=== PATIENT | female | born 1945 | race Caucasian/White ===

== ENCOUNTER 2018-01-17 08:00 | Emergency (ER) | payer MEDICARE ==
[2018-01-17 08:13] VITALS: BP 146/57
--- NOTE | 2018-01-17 09:15 | UC ---
FLU HPI - HPI Summary HPI Summary: ONSET YESTERDAY OF COUGH, CONGESTION, SUBJECTIVE FEVER, CHILLS, BODY ACHES, FATIGUE, ST AND POST-TUSSIVE EMESIS. GREAT GRANDDAUGHTER HAD THE FLU 2 WEEKS AGO. NO FLU SHOT THIS SEASON. - History of Current Complaint Chief Complaint: UCRespiratory Stated Complaint: COUGH,SORE THROAT Time Seen by Provider: 01/17/18 08:37 Hx Obtained From: Patient Hx Last Menstrual Period: tubal ligation Onset/Duration: Gradual Onset, Lasting Hours, Still Present Severity Currently: Moderate Severity Initially: Moderate Pain Intensity: 6 Pain Scale Used: 0-10 Numeric Associated Signs & Symptoms: Positive: Fever, Myalgia, Cough, Sore Throat, Nasal Congestion, Headache, Vomiting - Allergy/Home Medications Allergies/Adverse Reactions: Allergies Allergy/AdvReac Type Severity Reaction Status Date / Time amoxicillin Allergy Diarrhea Verified 01/17/18 08:27 furosemide Allergy Rash Verified 01/17/18 08:34 glipizide Allergy Rash Verified 01/17/18 08:34 glyburide Allergy Hives Verified 01/17/18 08:23 latex Allergy Rash Verified 01/17/18 08:29 lisinopril Allergy Dizziness Verified 01/17/18 08:34 loratadine Allergy Palpitation Verified 01/17/18 08:27 s losartan Allergy Rash Verified 01/17/18 08:36 nateglinide [From Starlix] Allergy Rash Verified 01/17/18 08:29 pioglitazone Allergy Swelling Verified 01/17/18 08:27 prednisone Allergy Diarrhea Verified 01/17/18 08:23 repaglinide [From Prandin] Allergy Rash Verified 01/17/18 08:29 Sulfa (Sulfonamide Allergy Rash Verified 01/17/18 08:29 Antibiotics) telmisartan [From Micardis] Allergy Pain Verified 01/17/18 08:28 topiramate [From Topamax] Allergy Headache Verified 01/17/18 08:23 valsartan [From Diovan] Allergy Rash Verified 01/17/18 08:28 Home Medications: Home Medications Acetaminophen 325 mg PO Q6H MDD pain 01/17/18 [History Confirmed 01/17/18] Spironolactone TAB* [Aldactone TAB 25 MG*] 25 mg PO DAILY 01/17/18 [History Confirmed 01/17/18] PMH/Surg Hx/FS Hx/Imm Hx Endocrine History: Diabetes Cardiovascular History: Hypertension Other History Of: Negative For: Anticoagulant Therapy - Surgical History Surgical History: Yes Surgery Procedure, Year, and Place: TONSILECTOMY WHEN PT WAS 6 - appendectomy at 12 - thumbs bilat for trigger finger - optical laser surgery - Family History Known Family History: Positive: Diabetes - Social History Alcohol Use: None Substance Use Type: None Smoking Status (MU): Former Smoker When Did the Patient Quit Smoking/Using Tobacco: 40 years ago - Immunization History Most Recent Influenza Vaccination: unknown Most Recent Tetanus Shot: < 5 years Most Recent Pneumonia Vaccination: 20 years Review of Systems Constitutional: Chills, Fatigue ENT: Sore Throat, Nasal Discharge Respiratory: Cough Cardiovascular: Negative Gastrointestinal: Vomiting Musculoskeletal: Myalgia Neurological: Headache All Other Systems Reviewed And Are Negative: Yes Physical Exam Triage Information Reviewed: Yes Appearance: No Pain Distress, Well-Nourished, Ill-Appearing - MILDLY ILL AND FATIGUED APPEARING Vital Signs: Initial Vital Signs Temp 96.9 F 01/17/18 08:07 Pulse 72 01/17/18 08:07 Resp 16 01/17/18 08:07 BP 146/57 01/17/18 08:07 Pulse Ox 99 01/17/18 08:07 Vital Signs Reviewed: Yes Eyes: Positive: Conjunctiva Clear ENT: Positive: Hearing grossly normal, Pharynx normal, TMs normal Neck: Positive: Supple, Nontender, No Lymphadenopathy Respiratory Exam: Normal Cardiovascular Exam: Normal Abdomen Description: Positive: Soft Musculoskeletal: Positive: No Edema Neurological: Positive: Alert Psychological: Positive: Normal Response To Family, Age Appropriate Behavior Skin: Negative: rashes Diagnostics - Laboratory Diagnostic Studies Completed/Ordered: INFLUENZA B POSITIVE Flu Course/Dx - Differential Dx/Diagnosis Provider Diagnoses: INFLUENZA B Discharge - Discharge Plan Condition: Stable Disposition: HOME Prescriptions: Codeine Phosphate/Guaifenesin [Codeine-Guaifen 10-100 mg/5 ml] 5 - 10 ml PO Q6H PRN #150 ml MDD 40ML PRN Reason: Cough Patient Education Materials: Influenza (ED) Referrals: Sonya Michael MD [Primary Care Provider] - If Needed Additional Instructions: SWAB POSITIVE FOR INFLUENZA B. YOU ARE UNABLE TO TAKE TAMIFLU, TREATMENT IS SUPPORTIVE. OTC MEDS NEEDED FOR FEVER, BODY ACHES. STAY WELL HYDRATED AND RESTED. SEEK FOLLOW-UP IF YOU ARE NOT IMPROVING EXPECTED. GO TO ER WITHOUT FAIL IF YOU DEVELOP WORSENING SHORTNESS OF BREATH, CHEST PAIN, NAUSEA, SWEATS, DIZZINESS, WORSENING/PERSISTENT FEVER OR ANY OTHER CONCERNING SYMPTOMS.
== END 2018-01-17 09:37 | disposition home or self-care (01) ==
LOC: UCEAST 08:00
DX: J10.1 Influenza due to other identified influenza virus with other respiratory manifestations (principal); R53.83 Other fatigue; Z87.891 Personal history of nicotine dependence
CPT/HCPCS: 87502; 99212; G0463

== ENCOUNTER 2018-01-18 08:03 | Emergency (ER) | payer MEDICARE ==
[2018-01-18] MEDS ORDERED: NS 0.9% 1000 ML* 1,000 ML IV ONE (10:26)
[2018-01-18 10:44] LABS: ABS Basophils 0.1 10^3/ul (0-0.2); ABS Eosinophils 0.1 10^3/ul (0-0.6); ABS Lymphocytes 0.7 10^3/ul (1.0-4.8); ABS Monocytes 0.6 10^3/ul (0-0.8); ABS Nucleated RBC 0 10^3/ul; Eosinophil % 1.2 % (0-6); Hematocrit 39 % (35-47); Hemoglobin 13.2 g/dl (12.0-16.0); Lymphocyte % 16.3 % (25-47); Mean Corpuscular HGB Conc 34 g/dl (31-36); Mean Corpuscular Hemoglobin 31 pg (27-31); Mean Corpuscular Volume 92 fL (80-97); Mean Platelet Volume 9 um3 (7.4-10.4); Nucleated Red Blood Cells % 0.5; Platelet Count 152 10^3/ul (150-450); Red Blood Count 4.24 10^6/ul (4.0-5.4); Red Cell Distribution Width 15 % (10.5-15); White Blood Count 4.5 10^3/ul (3.5-10.8)
--- NOTE | 2018-01-18 10:56 | RAD ---
HISTORY: Cough, wheezing COMPARISONS: March VIEWS: 4: Frontal dual-energy and lateral views of the chest. FINDINGS: CARDIOMEDIASTINAL SILHOUETTE: The cardiomediastinal silhouette is normal. YUSRA: The yusra are normal. PLEURA: The costophrenic angles are sharp. No pleural abnormalities are noted. LUNG PARENCHYMA: The lungs are clear. ABDOMEN: The upper abdomen is clear. There is no subphrenic gas. BONES AND SOFT TISSUES: No bone or soft tissue abnormalities are noted. OTHER: None. IMPRESSION: NO ACTIVE CARDIOPULMONARY DISEASE.
[2018-01-18 10:58] LABS: EGFR Non-African American 79.9 (>60)
--- NOTE | 2018-01-18 12:15 | ED ---
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 She states it's very painful to swallow and so she hasn't been eating/drinking - even painful to swallow saliva, she does it but it takes a while as she feels it's getting stuck. She has a dry cough which is painful as well. Denies dyspnea, chest pain, SOB or pulmonary issues but she tried her daughter's albuterol breathing tx 2 times this morning w/o relief of cough. Was dx'd w/ infleunza A yesterday and has not been able to take tamiful as it "makes me sick" - N/V, rash. - History of Current Complaint Chief Complaint: EDThroatPain Time Seen by Provider: 01/18/18 09:45 Hx Obtained From: Patient - Allergy/Home Medications Allergies/Adverse Reactions: Allergies Allergy/AdvReac Type Severity Reaction Status Date / Time amoxicillin Allergy Diarrhea Verified 01/17/18 08:27 furosemide Allergy Rash Verified 01/17/18 08:34 glipizide Allergy Rash Verified 01/17/18 08:34 glyburide Allergy Hives Verified 01/17/18 08:23 latex Allergy Rash Verified 01/17/18 08:29 lisinopril Allergy Dizziness Verified 01/17/18 08:34 loratadine Allergy Palpitation Verified 01/17/18 08:27 s losartan Allergy Rash Verified 01/17/18 08:36 nateglinide [From Starlix] Allergy Rash Verified 01/17/18 08:29 pioglitazone Allergy Swelling Verified 01/17/18 08:27 prednisone Allergy Diarrhea Verified 01/17/18 08:23 repaglinide [From Prandin] Allergy Rash Verified 01/17/18 08:29 Sulfa (Sulfonamide Allergy Rash Verified 01/17/18 08:29 Antibiotics) telmisartan [From Micardis] Allergy Pain Verified 01/17/18 08:28 topiramate [From Topamax] Allergy Headache Verified 01/17/18 08:23 valsartan [From Diovan] Allergy Rash Verified 01/17/18 08:28 PMH/Surg Hx/FS Hx/Imm Hx Previously Healthy: No - influenza A Endocrine/Hematology History: Reports: Hx Diabetes - lantus 90 units, humalog 8 units 3 x day with meals and metformin Denies: Hx Anticoagulant Therapy, Hx Systemic Lupus Erythematosus, Hx Thyroid Disease, Hx Anemia Cardiovascular History: Reports: Hx Hypercholesterolemia - statin, Hx Hypertension Respiratory History: Reports: Hx Sleep Apnea - cpap Denies: Hx Asthma, Hx Chronic Obstructive Pulmonary Disease (COPD) GI History: Denies: Hx Crohn's Disease, Hx Diverticulosis, Hx Gall Bladder Disease, Hx Gastroesophageal Reflux Disease, Hx Irritable Bowel, Hx Ulcer Musculoskeletal History: Denies: Hx Arthritis, Hx Fibromyalgia, Hx Gout, Hx Osteoporosis Sensory History: Reports: Hx Contacts or Glasses Denies: Hx Hearing Aid Opthamlomology History: Reports: Hx Contacts or Glasses Neurological History: Denies: Hx Headaches, Hx Migraine, Hx Seizures Psychiatric History: Denies: Hx Anxiety, Hx Eating Disorder, Hx Depression, Hx Panic Disorder, Hx Post Traumatic Stress Disorder, Hx Suicide Attempt, Hx Substance Abuse - Cancer History Hx Chemotherapy: No Hx Radiation Therapy: No - Surgical History Surgery Procedure, Year, and Place: TONSILECTOMY WHEN PT WAS 6 - appendectomy at 12 - thumbs bilat for trigger finger - optical laser surgery Infectious Disease History: No Infectious Disease History: Denies: Hx Clostridium Difficile, Hx Hepatitis, Hx Human Immunodeficiency Virus (HIV), Hx of Known/Suspected MRSA, Hx Shingles, Hx Tuberculosis, Hx Known/ Suspected VRE, Traveled Outside the [place] in Last 30 Days - Family History Known Family History: Positive: Diabetes - Social History Occupation: Retired Lives: Alone Alcohol Use: None Hx Substance Use: No Substance Use Type: Reports: None Hx Tobacco Use: Yes - not currently Smoking Status (MU): Former Smoker Review of Systems Positive: Fatigue Eyes: Negative ENT: Negative Positive: Sore Throat Cardiovascular: Negative Positive: Cough Gastrointestinal: Negative Positive: no symptoms reported Positive: Arthralgia, Myalgia Skin: Negative Positive: Headache Psychological: Normal All Other Systems Reviewed And Are Negative: Yes Physical Exam Triage Information Reviewed: Yes Vital Signs On Initial Exam: Initial Vitals Temp Pulse Resp BP Pulse Ox 99.3 F 82 18 150/63 95 01/18/18 08:06 01/18/18 08:06 01/18/18 08:06 01/18/18 08:06 01/18/18 08:06 Vital Signs Reviewed: Yes Appearance: Positive: Ill-Appearing, Obese Skin: Positive: Warm, Skin Color Reflects Adequate Perfusion, Dry - no rash Head/Face: Positive: Normal Head/Face Inspection - sinuses NTTP Eyes: Positive: Normal, EOMI, Conjunctiva Clear. Negative: Conjunctiva Inflammed, Discharge ENT: Positive: Normal ENT inspection, Hearing grossly normal Diagnostics - Vital Signs Vital Signs Temp Pulse Resp BP Pulse Ox 01/18/18 11:30 81 164/52 90 01/18/18 11:00 79 139/57 94 01/18/18 10:51 79 94 01/18/18 10:49 84/54 01/18/18 10:25 98 01/18/18 09:52 83 97 01/18/18 09:30 79 137/44 92 01/18/18 09:00 78 148/55 90 01/18/18 08:30 78 143/49 92 01/18/18 08:21 80 96 01/18/18 08:19 155/56 01/18/18 08:06 99.3 F 82 18 150/63 95 - Laboratory Lab Results: Lab Results 01/18/18 01/18/18 01/18/18 Range/Units 10:18 10:30 10:30 WBC 4.5 (3.5-10.8) 10^3/ul RBC 4.24 (4.0-5.4) 10^6/ul Hgb 13.2 (12.0-16.0) g/dl Hct 39 (35-47) % MCV 92 (80-97) fL MCH 31 (27-31) pg MCHC 34 (31-36) g/dl RDW 15 (10.5-15) % Plt Count 152 (150-450) 10^3/ul MPV 9 (7.4-10.4) um3 Neut % (Auto) 66.3 (38-83) % Lymph % (Auto) 16.3 L (25-47) % [place] % (Auto) 14.4 H (1-9) % Eos % (Auto) 1.2 (0-6) % Baso % (Auto) 1.8 (0-2) % Absolute Neuts (auto) 3.0 (1.5-7.7) 10^3/ul Absolute Lymphs (auto) 0.7 L (1.0-4.8) 10^3/ul Absolute Monos (auto) 0.6 (0-0.8) 10^3/ul Absolute Eos (auto) 0.1 (0-0.6) 10^3/ul Absolute Basos (auto) 0.1 (0-0.2) 10^3/ul Absolute Nucleated RBC 0 10^3/ul Nucleated RBC % 0.5 Sodium 134 (133-145) mmol/L Potassium 3.9 (3.5-5.0) mmol/L Chloride 100 L (101-111) mmol/L Carbon Dioxide 27 (22-32) mmol/L Anion Gap 7 (2-11) mmol/L BUN 9 (6-24) mg/dL Creatinine 0.72 (0.51-0.95) mg/dL Est GFR ( Amer) 102.7 (>60) Est GFR (Non-Af Amer) 79.9 (>60) BUN/Creatinine Ratio 12.5 (8-20) Glucose 168 H (70-100) mg/dL POC Glucose (mg/dL) 178 H (70-100) mg/dL Lactic Acid (0.5-2.0) mmol/L Calcium 9.3 (8.6-10.3) mg/dL Magnesium 1.8 L (1.9-2.7) mg/dL Total Bilirubin 0.50 (0.2-1.0) mg/dL AST 92 H (13-39) U/L ALT 66 H (7-52) U/L Alkaline Phosphatase 46 (34-104) U/L C-Reactive Protein 24.46 H (< 5.00) mg/L Total Protein 7.3 (6.4-8.9) g/dL Albumin 4.1 (3.2-5.2) g/dL Globulin 3.2 (2-4) g/dL Albumin/Globulin Ratio 1.3 (1-3) 01/18/18 Range/Units 10:30 WBC (3.5-10.8) 10^3/ul RBC (4.0-5.4) 10^6/ul Hgb (12.0-16.0) g/dl Hct (35-47) % MCV (80-97) fL MCH (27-31) pg MCHC (31-36) g/dl RDW (10.5-15) % Plt Count (150-450) 10^3/ul MPV (7.4-10.4) um3 Neut % (Auto) (38-83) % Lymph % (Auto) (25-47) % [place] % (Auto) (1-9) % Eos % (Auto) (0-6) % Baso % (Auto) (0-2) % Absolute Neuts (auto) (1.5-7.7) 10^3/ul Absolute Lymphs (auto) (1.0-4.8) 10^3/ul Absolute Monos (auto) (0-0.8) 10^3/ul Absolute Eos (auto) (0-0.6) 10^3/ul Absolute Basos (auto) (0-0.2) 10^3/ul Absolute Nucleated RBC 10^3/ul Nucleated RBC % Sodium (133-145) mmol/L Potassium (3.5-5.0) mmol/L Chloride (101-111) mmol/L Carbon Dioxide (22-32) mmol/L Anion Gap (2-11) mmol/L BUN (6-24) mg/dL Creatinine (0.51-0.95) mg/dL Est GFR ( Amer) (>60) Est GFR (Non-Af Amer) (>60) BUN/Creatinine Ratio (8-20) Glucose (70-100) mg/dL POC Glucose (mg/dL) (70-100) mg/dL Lactic Acid 1.3 (0.5-2.0) mmol/L Calcium (8.6-10.3) mg/dL Magnesium (1.9-2.7) mg/dL Total Bilirubin (0.2-1.0) mg/dL AST (13-39) U/L ALT (7-52) U/L Alkaline Phosphatase (34-104) U/L C-Reactive Protein (< 5.00) mg/L Total Protein (6.4-8.9) g/dL Albumin (3.2-5.2) g/dL Globulin (2-4) g/dL Albumin/Globulin Ratio (1-3) Result Diagrams: 01/18/18 10:30 01/18/18 10:30 Lab Statement: Any lab studies that have been ordered have been reviewed, and results considered in the medical decision making process. Discharge - Discharge Plan Referrals: Sonya Michale MD [Primary Care Provider] -
[2018-01-18] MEDS ORDERED: Iodixanol* (CONTRAST) 320 MG/ML 100 ML SDV IV ONE (12:32)
--- NOTE | 2018-01-18 12:58 | RAD ---
HISTORY: Dysphagia, history of pharyngeal cellulitis COMPARISONS: September 19, 2013 TECHNIQUE: Multiple contiguous axial CT scans were obtained of the neck after the administration of nonionic intravenous contrast, with coronal and sagittal multiplanar reformations. FINDINGS: BRAIN AND ORBITS: The visualized brain and orbits are normal. PARANASAL SINUSES: There is mucosal thickening of ethmoid air cells. SALIVARY GLANDS: The parotid glands, submandibular glands, sublingual glands are normal. NASAL CAVITY/NASOPHARYNX: The nasal cavity and nasopharynx are normal. ORAL CAVITY/OROPHARYNX: The oral cavity is obscured by streak artifact from dental amalgam. The visualized oral cavity and oropharynx are unremarkable. LARYNGEAL APPARATUS/HYPOPHARYNX: The laryngeal apparatus and hypopharynx are normal. UPPER AIRWAY/UPPER ESOPHAGUS: The visualized upper airway and esophagus are normal. LUNG APICES: The lung apices are clear. THYROID GLAND: The thyroid gland is normal. LYMPH NODES: There is no lymphadenopathy by size criteria. VASCULATURE: There is calcification of the carotid bifurcations. There is mesial submucosal deviation of the internal carotid arteries bilaterally. BONES AND SOFT TISSUES: Degenerative changes are noted of the spine. OTHER: None. IMPRESSION: 1. NO SOFT TISSUE EDEMA TO SUGGEST CELLULITIS. NO LOCULATED FLUID COLLECTION TO SUGGEST ABSCESS. THE PHARYNX IS UNREMARKABLE. 2. ATHEROSCLEROSIS. 3. MILD SINUS MUCOSAL INFLAMMATORY DISEASE, WITHOUT AIR-FLUID LEVEL TO SUGGEST ACUTE SINUSITIS.
[2018-01-18] MEDS ORDERED: Magic Mouth Was-BEN/MAAL/LIDO SWISH SWAL ONE (13:01)
[2018-01-18] MEDS ORDERED: Ketorolac INJ* 30 MG/ML 1 ML VIAL IV PUSH ONE (14:27)
[2018-01-18 16:57] VITALS: BP 156/54
== END 2018-01-18 16:55 | disposition home or self-care (01) ==
LOC: ED 08:03
DX: J02.9 Acute pharyngitis, unspecified (principal); R13.10 Dysphagia, unspecified; E11.9 Type 2 diabetes mellitus without complications; I10 Essential (primary) hypertension; Z79.4 Long term (current) use of insulin; Z87.891 Personal history of nicotine dependence; Z88.1 Allergy status to other antibiotic agents; Z88.8 Allergy status to other drugs, medicaments and biological substances
CPT/HCPCS: 36415; 70491; 71046; 80053; 83605; 83735; 85025; 86140; 96361; 96374; 99283; A9270-GY; J1885; Q9967

== ENCOUNTER 2018-01-23 13:21 | Observation (INO) | payer MEDICARE ==
[2018-01-23] MEDS ORDERED: NS 0.9% 1000 ML* 1,000 ML IV ONE ×2 (14:53→17:13)
[2018-01-23] MEDS ORDERED: Ondansetron INJ* 2 MG/ML VIAL IV ONE (14:53)
--- NOTE | 2018-01-23 16:02 | RAD ---
INDICATION: Cough and fever. COMPARISON: Comparison is made with a prior chest x-ray study from January 18, 2018. TECHNIQUE: Dual-energy PA and lateral views of the chest were obtained. FINDINGS: The heart is within normal limits in size. Mediastinal and hilar contours appear within normal limits. There is mild prominence of the interstitial markings which are unchanged. There are small infiltrates at the medial lung bases. No pleural effusion is seen. IMPRESSION: SMALL BIBASILAR INFILTRATES.
[2018-01-23 16:31] LABS: ABS Basophils 0.1 10^3/ul (0-0.2); ABS Eosinophils 0.2 10^3/ul (0-0.6); ABS Lymphocytes 2.2 10^3/ul (1.0-4.8); ABS Monocytes 0.9 10^3/ul (0-0.8); ABS Neutrophils 6.5 10^3/ul (1.5-7.7); ABS Nucleated RBC 0 10^3/ul; Eosinophil % 1.6 % (0-6); Hematocrit 33 % (35-47); Hemoglobin 11.2 g/dl (12.0-16.0); Mean Corpuscular HGB Conc 34 g/dl (31-36); Mean Corpuscular Hemoglobin 31 pg (27-31); Mean Corpuscular Volume 91 fL (80-97); Mean Platelet Volume 8 um3 (7.4-10.4); Nucleated Red Blood Cells % 0.1; Platelet Count 236 10^3/ul (150-450); Red Blood Count 3.65 10^6/ul (4.0-5.4); Red Cell Distribution Width 15 % (10.5-15); White Blood Count 9.8 10^3/ul (3.5-10.8)
[2018-01-23 16:41] LABS: INR 1.25 (0.77-1.02)
[2018-01-23 17:00] LABS: EGFR Non-African American 85.3 (>60)
[2018-01-23] MEDS ORDERED: Levofloxacin 750 MG IVPREMIX(* 750 MG/150 ML BAG IVPB ONE (17:13)
[2018-01-23] MEDS ORDERED: Ibuprofen TAB* 200 MG PO PRN (18:29)
[2018-01-23] MEDS ORDERED: Dextrose 50% Syringe 50 ML* 25 GM/50 ML SYRINGE IV PUSH PRN (18:51)
--- NOTE | 2018-01-23 19:34 | ED ---
Seth Neumann Stephanie, scribed for Gaudencio Amaya MD on 01/23/18 at 1411 . Influenza-Like Illness - HPI Summary HPI Summary: The pt is a 72 y/o F presenting to the ED with c/o influenza-like symptoms that began a few weeks ago. Symptoms include low blood sugar, myalgia, sore throat, confusion, diffuse MOHR, decreased appetite, productive cough and watery diarrhea. The pt tested positive for influenza on 01/17. The pt reports decreased appetite secondary to influenza symptoms. Pt states she was sent in by Dr. Michael for diabetic complications. - History of Current Complaint Chief Complaint: EDDiabeticProb Time Seen by Provider: 01/23/18 13:44 Hx Obtained From: Patient, Family/Supply Chain Buyer - daughter Onset/Duration: Gradual Onset, Lasting Weeks - 2 Associated Signs & Symptoms: Myalgia, Cough, Sore Throat, Headache, Diarrhea - Allergy/Home Medications Allergies/Adverse Reactions: Allergies Allergy/AdvReac Type Severity Reaction Status Date / Time amoxicillin Allergy Diarrhea Verified 01/17/18 08:27 furosemide Allergy Rash Verified 01/17/18 08:34 glipizide Allergy Rash Verified 01/17/18 08:34 glyburide Allergy Hives Verified 01/17/18 08:23 latex Allergy Rash Verified 01/17/18 08:29 lisinopril Allergy Dizziness Verified 01/17/18 08:34 loratadine Allergy Palpitation Verified 01/17/18 08:27 s losartan Allergy Rash Verified 01/17/18 08:36 nateglinide [From Starlix] Allergy Rash Verified 01/17/18 08:29 pioglitazone Allergy Swelling Verified 01/17/18 08:27 prednisone Allergy Diarrhea Verified 01/17/18 08:23 repaglinide [From Prandin] Allergy Rash Verified 01/17/18 08:29 Sulfa (Sulfonamide Allergy Rash Verified 01/17/18 08:29 Antibiotics) telmisartan [From Micardis] Allergy Pain Verified 01/17/18 08:28 topiramate [From Topamax] Allergy Headache Verified 01/17/18 08:23 valsartan [From Diovan] Allergy Rash Verified 01/17/18 08:28 Home Medications: Home Medications Acetaminophen [Tylenol Extra Strength] 500 mg PO Q4H PRN 01/23/18 [History Confirmed 01/23/18] Ibuprofen TAB* [Advil TAB*] 200 mg PO Q4H PRN 01/23/18 [History Confirmed ] Insulin LISPRO* [HumaLOG*] 8 units SUBCUT TID WITH MEALS 01/23/18 [History Confirmed 01/23/18] Metformin ER (NF) 1,000 mg PO DAILY 01/23/18 [History Confirmed 01/23/18] PMH/Surg Hx/FS Hx/Imm Hx Endocrine/Hematology History: Reports: Hx Diabetes - lantus 90 units, humalog 8 units 3 x day with meals and metformin Denies: Hx Anticoagulant Therapy, Hx Systemic Lupus Erythematosus, Hx Thyroid Disease, Hx Anemia Cardiovascular History: Reports: Hx Hypercholesterolemia - statin, Hx Hypertension Respiratory History: Reports: Hx Sleep Apnea - cpap Denies: Hx Asthma, Hx Chronic Obstructive Pulmonary Disease (COPD) GI History: Denies: Hx Crohn's Disease, Hx Diverticulosis, Hx Gall Bladder Disease, Hx Gastroesophageal Reflux Disease, Hx Irritable Bowel, Hx Ulcer Musculoskeletal History: Denies: Hx Arthritis, Hx Fibromyalgia, Hx Gout, Hx Osteoporosis Sensory History: Reports: Hx Contacts or Glasses Denies: Hx Hearing Aid Opthamlomology History: Reports: Hx Contacts or Glasses Neurological History: Denies: Hx Headaches, Hx Migraine, Hx Seizures Psychiatric History: Denies: Hx Anxiety, Hx Eating Disorder, Hx Depression, Hx Panic Disorder, Hx Post Traumatic Stress Disorder, Hx Suicide Attempt, Hx Substance Abuse - Cancer History Hx Chemotherapy: No Hx Radiation Therapy: No - Surgical History Surgery Procedure, Year, and Place: TONSILECTOMY WHEN PT WAS 6 - appendectomy at 12 - thumbs bilat for trigger finger - optical laser surgery Infectious Disease History: No Infectious Disease History: Denies: Hx Clostridium Difficile, Hx Hepatitis, Hx Human Immunodeficiency Virus (HIV), Hx of Known/Suspected MRSA, Hx Shingles, Hx Tuberculosis, Hx Known/ Suspected VRE, Traveled Outside the [place] in Last 30 Days - Family History Known Family History: Positive: Diabetes - Social History Occupation: Retired Lives: Alone Alcohol Use: None Hx Substance Use: No Substance Use Type: Reports: None Hx Tobacco Use: Yes - not currently Smoking Status (MU): Former Smoker Review of Systems Positive: Other - low blood sugar, decreased appetite. Negative: Fever Positive: Sore Throat Positive: Cough - productive Positive: Diarrhea Positive: Myalgia Neurological: Other - confusion Positive: Headache - diffuse All Other Systems Reviewed And Are Negative: Yes Physical Exam - Summary Physical Exam Summary: Appearance: The patient is well-nourished in no acute distress and in no acute pain. Skin: The skin is warm and dry and skin color reflects adequate perfusion. HEENT: The head is normocephalic and atraumatic. The pupils are equal and reactive. The conjunctivae are clear and without drainage. Nares are patent and without drainage. Mouth reveals moist mucous membranes and the throat is without erythema and exudate. The external ears are intact. The ear canals are patent and without drainage. The tympanic membranes are intact. Neck: the neck is supple with full range of motion and non-tender. There are no carotid bruits. There is no neck vein distension. Respiratory: Chest is non-tender. Course crackles bilateral lower lung zimmerman. Breath sounds are symmetrical and equal. Cardiovascular: Heart is regular rate and rhythm. There is no murmur or rub auscultated. There is no peripheral edema and pulses are symmetrical and equal. Abdomen: The abdomen is soft and non-tender. There are normal bowel sounds heard in all four quadrants and there is no organomegaly palpated. Musculoskeletal: There is no back tenderness noted. Extremities are non-tender with full range of motion. There is good capillary refill. There is no peripheral edema or calf tenderness elicited. Neurological: Patient is alert and oriented to person, place and time. The patient has symmetrical motor strength in all four extremities. Cranial nerves are grossly intact. Deep tendon reflexes are symmetrical and equal in all four extremities. Psychiatric: The patient has an appropriate affect and does not exhibit any anxiety or depression Triage Information Reviewed: Yes Vital Signs On Initial Exam: Initial Vitals Temp Pulse Resp BP Pulse Ox 96.7 F 65 19 142/60 94 01/23/18 13:35 01/23/18 13:35 01/23/18 13:35 01/23/18 13:35 01/23/18 13:35 Vital Signs Reviewed: Yes Diagnostics - Vital Signs Vital Signs Temp Pulse Resp BP Pulse Ox 01/23/18 14:01 72 93 01/23/18 14:00 146/41 01/23/18 13:35 96.7 F 65 19 142/60 94 - Laboratory Lab Results: Lab Results 01/23/18 01/23/18 01/23/18 Range/Units 13:52 16:20 16:20 WBC 9.8 (3.5-10.8) 10^3/ul RBC 3.65 L (4.0-5.4) 10^6/ul Hgb 11.2 L (12.0-16.0) g/dl Hct 33 L (35-47) % MCV 91 (80-97) fL MCH 31 (27-31) pg MCHC 34 (31-36) g/dl RDW 15 (10.5-15) % Plt Count 236 (150-450) 10^3/ul MPV 8 (7.4-10.4) um3 Neut % (Auto) 66.1 (38-83) % Lymph % (Auto) 22.0 L (25-47) % [place] % (Auto) 9.3 H (0-7) % Eos % (Auto) 1.6 (0-6) % Baso % (Auto) 1.0 (0-2) % Absolute Neuts (auto) 6.5 (1.5-7.7) 10^3/ul Absolute Lymphs (auto) 2.2 (1.0-4.8) 10^3/ul Absolute Monos (auto) 0.9 H (0-0.8) 10^3/ul Absolute Eos (auto) 0.2 (0-0.6) 10^3/ul Absolute Basos (auto) 0.1 (0-0.2) 10^3/ul Absolute Nucleated RBC 0 10^3/ul Nucleated RBC % 0.1 INR (Anticoag Therapy) (0.77-1.02) Sodium 138 (133-145) mmol/L Potassium 3.5 (3.5-5.0) mmol/L Chloride 105 (101-111) mmol/L Carbon Dioxide 28 (22-32) mmol/L Anion Gap 5 (2-11) mmol/L BUN 7 (6-24) mg/dL Creatinine 0.68 (0.51-0.95) mg/dL Est GFR ( Amer) 109.7 (>60) Est GFR (Non-Af Amer) 85.3 (>60) BUN/Creatinine Ratio 10.3 (8-20) Glucose 59 L (70-100) mg/dL POC Glucose (mg/dL) 87 (70-100) mg/dL Lactic Acid (0.5-2.0) mmol/L Calcium 9.3 (8.6-10.3) mg/dL Total Bilirubin 0.60 (0.2-1.0) mg/dL AST 28 (13-39) U/L ALT 25 (7-52) U/L Alkaline Phosphatase 41 (34-104) U/L Troponin I 0.01 (<0.04) ng/mL C-Reactive Protein 117.82 H (< 5.00) mg/L B-Natriuretic Peptide ( - 100) pg/mL Total Protein 6.6 (6.4-8.9) g/dL Albumin 3.3 (3.2-5.2) g/dL Globulin 3.3 (2-4) g/dL Albumin/Globulin Ratio 1.0 (1-3) 01/23/18 01/23/18 01/23/18 Range/Units 16:20 16:20 16:20 WBC (3.5-10.8) 10^3/ul RBC (4.0-5.4) 10^6/ul Hgb (12.0-16.0) g/dl Hct (35-47) % MCV (80-97) fL MCH (27-31) pg MCHC (31-36) g/dl RDW (10.5-15) % Plt Count (150-450) 10^3/ul MPV (7.4-10.4) um3 Neut % (Auto) (38-83) % Lymph % (Auto) (25-47) % [place] % (Auto) (0-7) % Eos % (Auto) (0-6) % Baso % (Auto) (0-2) % Absolute Neuts (auto) (1.5-7.7) 10^3/ul Absolute Lymphs (auto) (1.0-4.8) 10^3/ul Absolute Monos (auto) (0-0.8) 10^3/ul Absolute Eos (auto) (0-0.6) 10^3/ul Absolute Basos (auto) (0-0.2) 10^3/ul Absolute Nucleated RBC 10^3/ul Nucleated RBC % INR (Anticoag Therapy) 1.25 H (0.77-1.02) Sodium (133-145) mmol/L Potassium (3.5-5.0) mmol/L Chloride (101-111) mmol/L Carbon Dioxide (22-32) mmol/L Anion Gap (2-11) mmol/L BUN (6-24) mg/dL Creatinine (0.51-0.95) mg/dL Est GFR ( Amer) (>60) Est GFR (Non-Af Amer) (>60) BUN/Creatinine Ratio (8-20) Glucose (70-100) mg/dL POC Glucose (mg/dL) (70-100) mg/dL Lactic Acid 0.5 (0.5-2.0) mmol/L Calcium (8.6-10.3) mg/dL Total Bilirubin (0.2-1.0) mg/dL AST (13-39) U/L ALT (7-52) U/L Alkaline Phosphatase (34-104) U/L Troponin I (<0.04) ng/mL C-Reactive Protein (< 5.00) mg/L B-Natriuretic Peptide 106 H ( - 100) pg/mL Total Protein (6.4-8.9) g/dL Albumin (3.2-5.2) g/dL Globulin (2-4) g/dL Albumin/Globulin Ratio (1-3) Result Diagrams: 01/23/18 16:20 01/23/18 16:20 Lab Statement: Any lab studies that have been ordered have been reviewed, and results considered in the medical decision making process. - Radiology CXR Xray Interpretation: Positive (See Comments) Radiology Interpretation Completed By: Radiologist - SMALL BIBASILAR INFILTRATES Flu Symptom Course/Dx - Course Course Of Treatment: Ms. Vásquez was diagnosed with influenza about a week ago and has not gotten any better. She is not eating and getting weaker. She was found to have infiltrates on CXR and given antibiotics in case this is a secondary bacterial infection. She was given fluids IV also. The hospitalists are evaluating her at this time. - Diagnoses Provider Diagnoses: PNA (pneumonia) - Physician Notifications Discussed Care Of Patient With: Cehster Marquez - Advises to admit the pt. Time Discussed With Above Provider: 17:22 Discharge - Discharge Plan Condition: Stable Disposition: ADMITTED TO [facility] documentation as recorded by the Seth ribeiro Stephanie accurately reflects the service I personally performed and the decisions made by me, Gaudencio Amaya MD.
[2018-01-23] MEDS: Insulin LISPRO* 1 UNITS UNIT SUBCUT SCH (20:23)
[2018-01-23] MEDS ORDERED: Acetaminophen TAB* 325 MG PO PRN (20:40)
[2018-01-23] MEDS ORDERED: Atorvastatin* 10 MG TAB PO SCH (21:00)
[2018-01-24] MEDS: Insulin LISPRO* 1 UNITS UNIT SUBCUT SCH ×5 (00:39→12:18)
--- NOTE | 2018-01-24 01:57 | HP ---
HISTORY AND PHYSICAL: DATE OF ADMISSION: 01/23/18 ADMITTING PROVIDER: Johny Wright MD CHIEF COMPLAINT: Subjective fevers, poor p.o. intake, productive cough, labile blood sugars, generalized weakness. HISTORY OF PRESENT ILLNESS: Debby Vásquez is a 72-year-old female with a past medical history of insulin-dependent diabetes mellitus; hypertension; morbid obesity; obstructive sleep apnea, not using CPAP, who was diagnosed with influenza B at [facility] 6 days prior to admission on 01/17/18. She had poor p.o. intake and stopped taking her Lantus 90 units b.i.d. that night and blood sugars were elevated. The next day, she had trouble swallowing or eating , so she presented to the emergency room the next night, on 01/18/18. She was diagnosed with pharyngitis, dysphagia, and sounds like she got a shot of Toradol and then prescription for ibuprofen. She has had generalized malaise and poor appetite since then but had been denying any fevers or chills. She actually did have subjective fevers first night prior to admission. Denies any shortness of breath, but cough has now become productive with what she describes as yellow but daughter describes as brown/red sputum. She has had a bad headache. She presented to Dr. Michael's office for further evaluation today and was sent to [facility] ED with primary concern for labile blood sugars. She had readings as low as 71 in the a.m., 2 days prior to admission, and then 60 in the a.m., the day prior to admission and notably, she continued to take her 90 units twice a day, which she had restarted on Saturday without any dose reduction and has continued poor p.o. intake. She was scheduled to get a continuous glucose monitor placed at [facility] within the coming days but that has been postponed. Her recent A1c has risen from 6.1 at some point up to 8.2. She is on 8 units q.a.c. Her knot tier is Dr. Chery of [facility]. Upon presentation to the [facility] Emergency Room, she was initially hemodynamically stable but her one blood pressure reading was as low as 92/46 and sepsis protocol was initiated. She had a chest x-ray, which was concerning for bilateral small basilar infiltrates and in the setting of her recent influenza diagnosis, she was started on Levaquin and bolused 2 L of fluid and referred to [facility] hospitalist service for admission for potential pneumonia in the setting of influenza. The patient was not able to start on Tamiflu because she states she has had poor reaction/rash in the past. She has had diarrhea yesterday. She is lightheaded and dizzy. Her daughter knows that she has been more confused recently and generally feeling terrible for the last 3 days. She was without leukocytosis, fevers here. Blood glucose on admission was 59. CRP was 118. PAST MEDICAL HISTORY: Insulin-dependent diabetes mellitus, hypertension, morbid obesity, obstructive sleep apnea. MEDICATIONS: 1. Ibuprofen 200 mg p.o. q.4 hours p.r.n. 2. Acetaminophen 500 mg p.o. q.4 hours p.r.n. 3. Lispro 8 units t.i.d. with meals. 4. Lantus 90 units b.i.d. 5. Aspirin 81 mg daily. 6. Multivitamin 1 tab p.o. daily. 7. Metformin 1000 mg q.a.m. 8. Labetalol 300 mg p.o. t.i.d. 9. Spironolactone 50 mg p.o. q.a.m. 10. Simvastatin 10 mg p.o. q.h.s. ALLERGIES: Include AMOXICILLIN (diarrhea); FUROSEMIDE, rash; GLIPIZIDE, rash; GLYBURIDE, hives; LATEX, rash; LISINOPRIL, dizziness; LORATADINE, palpitation; LOSARTAN, rash; STARLIX, rash; PIOGLITAZONE, swelling; PREDNISONE, diarrhea; REPAGLINIDE, rash; SULFA, rash; TELMISARTAN, pain; TOPIRAMATE, headaches; VALSARTAN, rash. FAMILY HISTORY: Dad had uncontrolled diabetes mellitus. Mother with colon cancer and diabetes. SOCIAL HISTORY: The patient is a former smoker for few years, quit 45 years ago , nondrinker. No other drug use. She lives alone but next door is her brother. Her daughter, Shannon Ch, is her medical proxy. REVIEW OF SYSTEMS: A complete 14-point review of systems negative except as per HPI. PHYSICAL EXAMINATION GENERAL APPEARANCE: No acute distress. Sitting on the hospital bed. VITAL SIGNS: Blood pressure 142/60 initially as low as 92/46, currently 150/67 ; satting 94% on room air; pulse rate 65; temperature 96.7. HEENT: Normocephalic, atraumatic. Pupils equal, round, and reactive to light. Extraocular motions intact. NECK: Supple. No cervical lymphadenopathy. No oropharynx lesions. PULMONARY: Clear to auscultation bilaterally but with distant lung sounds. No tatyana wheezing, rales, or rhonchi. CARDIOVASCULAR: Regular rate and rhythm. No murmurs, rubs, or gallops. ABDOMEN: Soft, nontender, distended secondary to morbid obesity. No rebound, no guarding. EXTREMITIES: Warm and well perfused. No peripheral edema. NEURO: Combination Saw Operator strength 5/5, flexion 5/5, slightly decreased sensation in bilateral lower extremities secondary to neuropathy. Cranial nerves II through XII intact. SKIN: No rashes, no lesions. DIAGNOSTIC STUDIES/LAB DATA: White count 9.8, hemoglobin 11.2, hematocrit 33, platelets 236. INR 1.25. Sodium 138, potassium 3.5, chloride 105, carbon dioxide 28, BUN 7, creatinine 0.68, glucose 59, lactic acid 0.5. CRP 118. BNP 106. AST 28, ALT 25, alk phos 41. Troponin 0.01. Albumin 3.3. Imaging: X-ray demonstrated small bibasilar infiltrates. ASSESSMENT AND PLAN: Debby Vásquez is a 72-year-old female, who recently diagnosed 6 days ago with influenza B, has had productive cough, subjective fevers, and poor p.o. appetite, presenting with hypoglycemia, transient low blood pressures, and chest x-ray concerning for possible basilar infiltrates. She is being admitted to observation status for these concerns. She is status post 1 dose of Levaquin in the emergency room. We will get a sputum culture and legionella and Streptococcus pneumoniae urine antigens. Continue levofloxacin. We will add procalcitonin level. She is nontoxic appearing and chest x-ray findings are frankly not that impressive. She is afebrile without leukocytosis. She will be admitted to observation status, so we can stabilize her blood sugars. She is notably not very sophisticated in terms of management. She has continued to take her Lantus 90 units b.i.d. with blood sugars as low as 60 without checking any more throughout the entire day, continuing her meal-time insulin, reported A1c last was 8.2. We will put her on [id number] glucose testing every 4 hours with sliding scale insulin as needed. She will need extensive diabetic teaching both here and as an outpatient with Dr. Chery, her knot tier. She desires to be a DNR/DNI. We will hold her Aldactone for now and labetalol but we will threshold to titrate back on again. She is nontoxic appearing and this may have been just transiently low blood pressures in the emergency room of unclear significance frankly. She is status post 2 L of IV fluids without lactic acidosis. [id number]/[facility] #: [id number] GARY
[2018-01-24 06:48] LABS: Urine Appearance Clear; Urine Blood Negative (Negative); Urine Color Yellow; Urine Ketones Negative (Negative); Urine Protein Negative (Negative); Urine Specific Gravity 1.005 (1.010-1.030); Urine Urobilinogen Negative (Negative)
[2018-01-24 07:53] VITALS: BP 140/48
[2018-01-24] MEDS ORDERED: Aspirin Low Dose CHEW TAB* 81 MG PO SCH (09:00)
[2018-01-24] MEDS ORDERED: Multivitamins/Minerals TAB PO SCH (09:00)
[2018-01-24 09:31] LABS: ABS Basophils 0 10^3/ul (0-0.2); ABS Eosinophils 0.2 10^3/ul (0-0.6); ABS Lymphocytes 1.8 10^3/ul (1.0-4.8); ABS Neutrophils 6.1 10^3/ul (1.5-7.7); ABS Nucleated RBC 0 10^3/ul; Eosinophil % 2.1 % (0-6); Hematocrit 33 % (35-47); Hemoglobin 11.2 g/dl (12.0-16.0); Lymphocyte % 19.8 % (25-47); Mean Corpuscular HGB Conc 34 g/dl (31-36); Mean Corpuscular Hemoglobin 31 pg (27-31); Mean Corpuscular Volume 90 fL (80-97); Mean Platelet Volume 8 um3 (7.4-10.4); Nucleated Red Blood Cells % 0.1; Platelet Count 243 10^3/ul (150-450); Red Blood Count 3.63 10^6/ul (4.0-5.4); Red Cell Distribution Width 15 % (10.5-15); White Blood Count 9.1 10^3/ul (3.5-10.8)
[2018-01-24 09:41] LABS: EGFR Non-African American 100.5 (>60)
--- NOTE | 2018-01-25 00:02 | DS ---
DISCHARGE SUMMARY: DATE OF ADMISSION: 01/23/18 DATE OF DISCHARGE: 01/24/18 ADMITTING PROVIDER AND ATTENDING PHYSICIAN: Johny Wright MD PRIMARY CARE PHYSICIAN: Dr. Sonya Michael. PRIMARY ENDOCRINOLOGISTS: 1. Dr. Lakisha Chery. 2. JEFRY Gann CHIEF COMPLAINT: Subjective fevers, poor p.o. intake, productive cough, labile blood sugars (sent in from Dr. Michael's office), generalized weakness. PRINCIPAL DIAGNOSES: 1. Labile blood sugars and hypoglycemia in the setting of continued high doses of Lantus with poor p.o. intake. 2. Influenza. HISTORY OF PRESENT ILLNESS AND HOSPITAL COURSE: Ms. Vásquez is a 72-year-old female with past medical history of insulin-dependent diabetes mellitus, hypertension, morbid obesity, and obstructive sleep apnea,not using CPAP, diagnosed with influenza B 6 days prior to admission on 01/17/18. She was unable to take Tamiflu given rashes in the past with it. She had had trouble swallowing and some dysphagia the next day, presented to the ED and seemingly got a shot of Toradol with relief of symptoms and discharged with ibuprofen, she would follow with Dr. Michael, and there was review of her blood sugars with insulin as low as 60 and 71. She had initially stopped taking her Lantus 90 units b.i.d. over the weekend that had resolved, although her appetite had not really improved. She was sent by Dr. Michael for concern for the labile blood sugars. In the emergency room, she was hemodynamically stable. Initially, afebrile, no leukocytosis, but there was a transiently low reading of 92/46. ED physician started 2 L bolus and Levaquin after chest x-ray showed question of bilateral small infiltrates. She was admitted under observation status, felt improved overnight, afebrile, continued hemodynamic stability, and did not require any sliding scale insulin with sugars 87, 144, 108, and 99. She is being discharged with close followup with Dr. 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 She was advised to hold her Lantus 90 units b.i.d. and only use her short-acting insulin and record her insulin 5 times a day in the log book and take to Annabelle Johnson's office next week. She did have a procalcitonin drawn which was 0.1. Urinalysis was within normal limits. CRP was 118. BNP 106. Hemoglobin 11.2. She had negative strep and legionella urine antigens. Sputum culture was ordered, but pending. She is completely nontoxic appearing. Cough has resolved. I am not continuing any antibiotics. DISCHARGE MEDICATIONS: Include: 1. Tylenol 650 mg p.o. q.6 hours p.r.n. 2. Aspirin 81 mg daily. 3. Ibuprofen 200 mg p.o. q.4 hours p.r.n. 4. Multivitamin 1 tab p.o. daily. 5. Simvastatin 10 mg p.o. q.h.s. 6. Lispro 8 units subcutaneous t.i.d. with meals (as needed, please check blood sugars prior until followup with nurse practitioner, Annabelle Johnson). 7. Labetalol 300 mg p.o. t.i.d. 8. Metformin 1000 mg p.o. daily. 9. Spironolactone 50 mg p.o. daily. 10. Lantus 90 units b.i.d. (held until followup with Ms. Johnson. Please call office for sugars elevated above 200). DIET: Heart-healthy, carbohydrate consistent. ACTIVITY RESTRICTION: None. FOLLOWUP: Please follow up with Dr. Sonya michael and Annabelle Johnson NP , of Endocrinology ([place], [place]) within a week of discharge. TIME SPENT: On discharge 35 minutes. [id number]/[facility] #: [id number] MTDD
== END 2018-01-24 13:30 | disposition home or self-care (01) ==
LOC: ED 13:21 → MED 18:28
PROVIDERS: ADMIT Internal Medicine; ATTEND Internal Medicine
DX: E11.649 Type 2 diabetes mellitus with hypoglycemia without coma (principal); Z79.4 Long term (current) use of insulin; J10.1 Influenza due to other identified influenza virus with other respiratory manifestations; I10 Essential (primary) hypertension; E66.01 Morbid (severe) obesity due to excess calories; G47.33 Obstructive sleep apnea (adult) (pediatric); Z79.899 Other long term (current) drug therapy; Z88.2 Allergy status to sulfonamides; Z88.0 Allergy status to penicillin; Z88.8 Allergy status to other drugs, medicaments and biological substances; R53.1 Weakness; Z87.891 Personal history of nicotine dependence
CPT/HCPCS: 36415; 71046; 80048; 80053; 81003; 83605; 83735; 83880; 84145; 84484; 85025; 85610; 86140; 87040; 87899; 96365; 96366; 96375; 99284; A9270-GY; G0378; J2405